=== PATIENT | female | born 1970 | race Caucasian/White ===

== ENCOUNTER 2019-10-01 07:26 | Inpatient (IN) | payer OTHER ==
[2019-10-01] VITALS (13 sets, daily range): BP systolic 86–147; BP diastolic 39–93
[~2019-10-01] VITALS: Ht 157.5 cm; Wt 108.9 kg
--- NOTE | 2019-10-01 11:28 | NUR ---
ICU/RN: Pt was received from [facility] via ambulance at 1040 AM. Pt is alert and oriented x 4, Denies any pain or discomfort at this time. VS are WNL. NSR on tele on 2 LPM/NC with O2 sat 100%. PIV L AC is patent and intact. No skin breakdown noted. Scheduled for angiogram today with Dr. Jewell at 1300 today. Pt is aware of POC, answered her questions. and verbalized understanding.
[2019-10-01] MEDS ORDERED: VERAPAMIL HCL IV 5 MG/2 ML VIAL ONE (12:13)
[2019-10-01] MEDS ORDERED: IODIXANOL 150 ML IV ONE (12:13)
[2019-10-01] MEDS ORDERED: LIDOCAINE HCL/PF 1% 30 ML SDV ONE (12:14)
[2019-10-01] MEDS ORDERED: NITROGLYCERIN ICAR 1,000 MCG/10 ML VIAL ICAR ONE (12:14)
[2019-10-01] MEDS ORDERED: HEPARIN SODIUM, PORCINE 1,000 UNIT/ML VIAL ONE (12:41)
[2019-10-01] MEDS ORDERED: FENTANYL PF 100MCG/2ML AMPUL ONE (12:53)
[2019-10-01] MEDS ORDERED: MIDAZOLAM HCL 2 MG/2ML VIAL ONE (12:53)
[2019-10-01] MEDS ORDERED: HYDR12.55 PO (14:50)
[2019-10-01] MEDS ORDERED: ACET-868 PO (14:50)
[2019-10-01] MEDS ORDERED: EZET10TA16 PO (14:50)
[2019-10-01] MEDS ORDERED: ATOR20TA PO (14:50)
[2019-10-01] MEDS ORDERED: ATEN50TA PO (14:50)
[2019-10-01] MEDS ORDERED: BLOO-668 IN (14:50)
[2019-10-01] MEDS ORDERED: ERGO500014 PO (14:50)
[2019-10-01] MEDS ORDERED: MELO-107 PO (14:50)
[2019-10-01] MEDS ORDERED: METF-440 PO (14:50)
[2019-10-01] MEDS ORDERED: ASPI-1169 PO (14:50)
[2019-10-01] MEDS ORDERED: MAG30ORA PO (14:50)
[2019-10-01] MEDS ORDERED: LISI10TA5 PO (14:50)
[2019-10-01] MEDS ORDERED: INSU100V3 SQ (14:50)
[2019-10-01] MEDS ORDERED: SITA100T PO (14:50)
[2019-10-01] MEDS ORDERED: NITR0.4T48 SL (14:50)
[2019-10-01] MEDS ORDERED: GABA300C PO (14:50)
[2019-10-01] MEDS ORDERED: CALC-7 PO (14:50)
[2019-10-01] MEDS ORDERED: FUROSEMIDE 40 MG/4 ML VIAL IV ONE (15:00)
[2019-10-01] MEDS ORDERED: ZOLPIDEM TARTRATE 5 MG TABLET PO PRN (18:30)
[2019-10-01] MEDS ORDERED: ONDANSETRON HCL/PF 4 MG/2 ML VIAL IVP PRN (18:30)
[2019-10-01] MEDS ORDERED: ACETAMINOPHEN 325 MG TABLET PO PRN (18:30)
--- NOTE | 2019-10-01 18:32 | NUR ---
ICU/RN: Pt came back from bed laborer with the TR band on the R radial. Pt was alert and stable. No drips, no interventions done at the time. 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 Dr. Jewell advised CABG, cardio-thoracic team was contacted by him. Spoke to Dr. Solorio was informed that pt is being transferred to [facility]. TR band was successfully removed at 1730 today with no bleeding noted. Tolerated cardiac/diabetic diet as ordered. Gave Lasix IVP as ordered and diuresed about 1300ml by bedside commode. Dr. Ochoa saw pt this afternoon. 183 Still no ICU bed available, pt's staus was down graded to tele. asset protection manager is on board on transferring pt tonight. Pt remains stable and sitting up in bed as tolerated. VS WNL.
--- NOTE | 2019-10-01 19:30 | NUR ---
RN NOTES RECEIVED PATIENT AWAKE SITTING ON BED. PATIENT PLACED ON ISOLATION DUE TO UNDER INVESTIGATION FOR COVID. NO SIGNS OF COVID PRESENT, NO APPARENT RESPIRATORY DISTRESS. AFEBRILE. NO SIGNS OF BLEEDING IN RIGHT RADIAL. DENIES CHEST PAIN. PATIENT HAS O2 2LPM VIA NC AND TOLERATED WELL SATURATION >94%. IV SITE ON LAC G 20 INTACT AND PATENT. PT AMBULATES AND TOLERATED WELL WITHOUT DIZZINESS. AWAITING FOR BED AT [facility] FOR CABG. PT MADE AWARE.
[2019-10-02] VITALS (11 sets, daily range): BP systolic 104–139; BP diastolic 63–91
[2019-10-02 04:24] LABS: BASOPHILS # (AUTO) 0.1 /CMM (0.0-0.2); BASOPHILS % (AUTO) 0.6 % (0.0-2.0); EOSINOPHILS % (AUTO) 4.6 % (0.0-6.0); HEMATOCRIT 31 % (33-45); HEMOGLOBIN 10.4 g/dL (11.5-14.8); LYMPHOCYTES # (AUTO) 2.9 /CMM (0.8-4.8); LYMPHOCYTES % (AUTO) 23.6 % (20.0-44.0); MEAN CORPUSCULAR HGB CONC 34 g/dl (31.0-36.0); MEAN CORPUSCULAR VOLUME 83 fL (82-100); MONOCYTES # (AUTO) 0.8 /CMM (0.1-1.30); MONOCYTES % (AUTO) 6.9 % (2.0-12.0); NEUTROPHILS # (AUTO) 7.8 /CMM (1.8-8.9); NEUTROPHILS % (AUTO) 64.3 % (43.0-81.0); PLATELET COUNT (AUTO) 383 /CMM (150-450); RED BLOOD CELL COUNT(AUTO) 3.68 MIL/uL (4.0-5.2); WHITE BLOOD COUNT (AUTO) 12.1 K/uL (4.3-11.0)
[2019-10-02 05:00] LABS: CALCIUM, SERUM 9.5 mg/dL (8.5-10.1); CREATININE 0.8 mg/dL (0.6-1.3); MAGNESIUM 1.4 mg/dL (1.8-2.4); PHOSPHORUS 5.3 mg/dL (2.5-4.9)
--- NOTE | 2019-10-02 07:00 | NUR ---
RN NOTES PATIENT REMAINED STABLE NO SIGNIFICANT CHANGES THROUGHOUT THE SHIFT. AFEBRILE. ASLEEP WELL AT NIGHT. NSR ON TELE MONITOR. O2 2LPM VIA NC CONTINUE. NO BLEEDING NOTED FROM RIGHT RADIAL SITE. DENIES CHEST PAIN OR N/V. ALL DUE MEDICINE TOLERATED WELL. KEPT PT CLEAN AND DRY. BED BATH DONE. ENDORSED CONTINUITY OF CARE TO AM NURSE.
--- NOTE | 2019-10-02 08:20 | NUR ---
ICU/RN: REPORT ENDORSED TO YESI AMAYA. PT TRANSFERRED TO [facility], TELE PER MD ORDERS. PT ALERT, AWAKE, AWAITING TRANSFER TO [facility] FOR CABG. ALL BELONGINGS SENT WITH PT. ALL NEEDS WILL BE ATTENDED TO. SAFETY MEASURES TAKEN. ENDORSED REPORT FOR BALWINDER.
--- NOTE | 2019-10-02 08:30 | NUR ---
RN NOTE: Received patient leanna Campbell RN in stable condition. Will continue care in telemetry floor.
[2019-10-02] MEDS ORDERED: ASPIRIN 81 MG TAB.CHEW PO SCH (09:00)
[2019-10-02] MEDS ORDERED: ENOXAPARIN SODIUM 100 MG/ML DISP.SYRIN SQ SCH (09:00)
[2019-10-02] MEDS ORDERED: METOPROLOL SUCCINATE 50 MG TAB.SR.24H PO SCH (09:00)
[2019-10-02] MEDS ORDERED: ATORVASTATIN 40 MG TABLET PO SCH (09:00)
[2019-10-02] MEDS: Magnesium 1GM/D5W 100ML PREMIX 100 ML IV SCH ×4 (11:45→16:58)
--- NOTE | 2019-10-02 11:45 | NUR ---
Rn note: Informed Dr. Mera regarding Medication reconciliation to be done for patient. acknowledged information
[2019-10-02] MEDS ORDERED: DEXTROSE 50%-WATER 50 ML DISP.SYRIN IV PRN (16:00)
[2019-10-02] MEDS ORDERED: *INSULIN REGULAR(HUMULIN R)HUM 100 UNIT/ML VIAL SQ PRN (16:00)
[2019-10-02] MEDS ORDERED: ACETAMINOPHEN 325 MG TABLET PO PRN (16:00)
[2019-10-02] MEDS ORDERED: INSULIN REGULAR, HUMAN 100 UNIT/ML 3 ML VIAL SQ PRN (16:00)
[2019-10-02] MEDS ORDERED: BLOOD SUGAR DIAGNOSTIC 1 EACH STRIP VI SCH (17:30)
--- NOTE | 2019-10-02 18:30 | NUR ---
rn note: Patient was taken by 2 EMT to be transferred to [facility]. Discharge orders by Dr. Mera carried out. Left in stable condition. Report was given to YESI Carroll. Discharge forms were signed, no skin breakdown issues, belongings form signed, transfer form signed.
[2019-10-02] MEDS ORDERED: GABAPENTIN 300 MG CAPSULE PO SCH (22:00)
[2019-10-03] MEDS ORDERED: CALCIUM CARB 250MG /VITAMIN D 1 UDTAB PO SCH (09:00)
[2019-10-03] MEDS ORDERED: LISINOPRIL (10MG) 10 MG TABLET PO SCH (09:00)
[2019-10-04] MEDS ORDERED: ERGOCALCIFEROL (VITAMIN D 2) 50,000 UNIT CAPSULE PO SCH (09:00)
== END 2019-10-02 18:25 | disposition short-term general hospital (02) | DRG 190 ==
LOC: ICU 10:15 → TELE1 10-02 09:04
PROVIDERS: ADMIT Nurse Practitioner Acute Care; ATTEND Internal Medicine
DX: I21.4 Non-ST elevation (NSTEMI) myocardial infarction (principal); I50.43 Acute on chronic combined systolic (congestive) and diastolic (congestive) heart failure; E11.65 Type 2 diabetes mellitus with hyperglycemia; E11.42 Type 2 diabetes mellitus with diabetic polyneuropathy; G62.9 Polyneuropathy, unspecified; I11.0 Hypertensive heart disease with heart failure; I25.5 Ischemic cardiomyopathy; I25.10 Atherosclerotic heart disease of native coronary artery without angina pectoris; E78.5 Hyperlipidemia, unspecified; Z90.710 Acquired absence of both cervix and uterus; E66.01 Morbid (severe) obesity due to excess calories; Z68.41 Body mass index [BMI] 40.0-44.9, adult
CPT/HCPCS: 36415; 80048-TC; 80061-TC; 82962-TC; 83735-TC; 84100-TC; 85025-TC; C1887; G0378; G0500; J1644; J1650; J1815; J1940; J2250; J3010; J3475; J3490; J7050; Q9967